=== PATIENT | male | born 1990 | race Two or more races ===

== ENCOUNTER → 2020-11-12 | Outpatient (CLI) | payer OTHER ==
[2020-11-12 10:33] LABS: BASOPHIL % 0.3 % (0.2-1.5); PLATELET COUNT 308 x10^3mcL (152-348)
[2020-11-12 10:40] LABS: ALBUMIN 4.1 g/dL (3.4-5.0); ALKALINE PHOSPHATASE 86 U/L (46-116); ALT/SGPT 108 U/L (16-63); AST/SGOT 28 U/L (15-37); BILIRUBIN TOTAL 0.94 mg/dL (0.20-1.00); CALCIUM 9.5 mg/dL (8.5-10.1); CARBON DIOXIDE 29.1 mmol/L (21-32); CHLORIDE SERUM 104 mmol/L (98-107); CHOLESTEROL 304 mg/dL (<200); CHOLESTEROL/HDL RATIO 6.8; CREATININE SERUM 1.1 mg/dL (0.7-1.3); GFR1 > 60 mL/min; GLUCOSE SERUM 109 mg/dL (74-106); HDL CHOLESTEROL 45 mg/dL (40-60); POTASSIUM SERUM 3.8 mmol/L (3.5-5.1); SODIUM SERUM 140 mmol/L (136-145); TOTAL PROTEIN, SERUM 8.2 g/dL (6.4-8.2); TRIGLYCERIDES 252 mg/dL (<150)
== END | disposition home or self-care (01) ==
LOC: LB 09:38
DX: L30.9 Dermatitis, unspecified (principal)